=== PATIENT | female | born 2000 | race Caucasian/White ===

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

== ENCOUNTER 2022-01-26 14:42 | Emergency (ER) | payer OTHER ==
[~2022-01-26 14:42] MED LIST: IBUPROFEN800 MG PO
[2022-01-26] MEDS ORDERED: IBUPROFEN800 MG PO (20:35)
== END 2022-01-26 20:50 | disposition home or self-care (01) ==
LOC: ER1 14:42
DX: S16.1XXA Strain of muscle, fascia and tendon at neck level, initial encounter (principal); S39.012A Strain of muscle, fascia and tendon of lower back, initial encounter; S76.011A Strain of muscle, fascia and tendon of right hip, initial encounter; R07.89 Other chest pain; V89.2XXA Person injured in unspecified motor-vehicle accident, traffic, initial encounter; Y92.410 Unspecified street and highway as the place of occurrence of the external cause
CPT/HCPCS: 71046; 72100; 72125; 73502; 99284